=== PATIENT | male | born 1970 | race Caucasian/White ===

== ENCOUNTER 2024-05-21 06:13 | Day surgery (SDC) | payer BC, SELFPAY ==
[2024-05-21] VITALS (21 sets, daily range): BP systolic 90–130; BP diastolic 55–101; PULSE 94–104; RESP 14–18; TEMP 36.2–36.8; O2SAT 91–98; BMI 33.5
[2024-05-21] MEDS: SODIUM CHLORIDE 0.9 % (FLUSH) 10 ML SYRINGE IVF (07:00)
[2024-05-21] MEDS: LACTATED RINGERS 1000 ML 1,000 ML 100 ML IV (07:00)
[2024-05-21 07:18] LABS: PTH Intact* 87.3 pg/mL (14.2-75.2)
--- NOTE | 2024-05-21 07:36 | W.PM.H&PU ---
History & Physical Update History & Physical Update H&P Reviewed and patient assessed: No changes noted
--- NOTE | 2024-05-21 08:05 | W.ANESCHARGE ---
Anesthesia Charges Start Date/Time Anesthesia Start Date: 05/21/24 Anesthesia Start Time: 07:35 Stop Date/Time Anesthesia Stop Date: 05/21/24 Anesthesia Stop Time: 12:20
[2024-05-21] MEDS: BUPIVACAINE 0.25% 30 ML INJECTION (11:45)
[2024-05-21 11:53] LABS: PTH Intact* 16.1 pg/mL (14.2-75.2)
--- NOTE | 2024-05-21 12:20 | P.GSOP_ITS ---
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 Workup revealed hyperparathyroidism with likely localization imaging to a parathyroid adenoma on the right. Please see Dr. Ramon's preoperative discussion and decision making for further details. Procedure Description: I arrived to the OR with the patient intubated.? Care was taken to pad the patient's pressure points, tuck the arms and and extend his neck. The NIM subde rmal electrodes were placed in the appropriate location. The operative site was then prepped and draped in the usual sterile fashion.? A time-out was then performed. Doctor Ramon then created an incision 2 fingerbreadths above the sternal notch and took dissection down to the subcutaneous fat and through the platysma layer. I retracted the inferior and superior incision will she created sub platysmal flaps to the thyroid cartilage superiorly and sternal notch inferiorly. We then began our dissection on the right. I retracted the thyroid while Dr. Ramon divided wispy fibers between the strap muscles with cautery, exposing the thyroid. We began by mobilizing the inferior pole. Dr. Ramon dissected out the inferior pole vessels and doubly ligated them with clips and ties before dividing. Once the inferior pole was free, I mobilized this superior old medially exposing the posterior thyroid bed. There was fatty tissue noted at the inferior aspect of the thyroid. This did not appear entirely consistent with an adenoma, however it did appear consistent with parathyroid tissue. This was excised and sent for biopsy. Frozen section confirmed this to be a parathyroid gland (specimen A). We did eventually send additional tissue from area A presuming it to be possible adenoma, however this was reported on frozen section to be fat (specimen D). We continued our dissection superiorly. The posterior aspect of the thyroid was lobulated. There was a round nodule posteriorly with a fatty cap. This appeared approximately in the location of the parathyroid, however it was firm and red and appeared more consistent with thyroid tissue. A biopsy for frozen section of this was sent and came back as fatty/fibrotic tissue (specimen B). We continued to explore the area posterior to the thyroid and further mobilized the thyroid medially by dividing the attachments to the strap muscles more superiorly. Again, I provided medial retraction of the thyroid and exposure while Dr. Ramon divided these attachments. At this point the posterior aspect of the thyroid was completely exposed. The recurrent laryngeal nerve was noted in its usual location was confirmed with the NIM. Dr. Ramon carefully picked through the fatty tissue in the central compartment. I divided thin tissue with cautery. Small vessels were clipped. Additional samples of tissue were sent, including fatty tissue posterior to the thyroid more superiorly; both came back as fat without evidence of parathyroid. As we examined the area posterior to the thyroid, the firm nodule which was attached to the thyroid was obscuring our view. This was noted at the location of the medial thyroid vein and recurrent laryngeal nerve. Again it appeared firm and reddened and did not appear consistent with parathyroid, however this was excised. Its base was cauterized and again, appeared more consistent with thyroid tissue. This was sent for frozen section and was reported back as hypercellular parathyroid (specimen G). An additional rim of tissue was also excised by Dr. Ramon and sent to pathology. The base was clipped to ensure hemostasis. Interestingly, this additional tissue appeared to be thyroid on fr ozen section (specimen H). Two venous samples for PTH were then sent; the first, 15 minutes after the superior parathyroid was sent, and the 2nd 15 minutes after the additional tissue was sent. These both came back at a greater than 50% reduction in the preoperative level, confirming successful excision of the superior adenoma. At this point, the wound was examined for hemostasis which was excellent. Dr. Ramon then finished closure of the wound. Please see Dr. Ramon's note for details. Findings: Superior parathyroid adenoma. Inferior parathyroid gland biopsied/removed Anesthesia: GETA Surgeon: Madonna Ramon MD Co-Surgeon: Carly Rutledge MD Estimated blood loss (mL): 5 Specimen: Other Additional Specimen Information: A) possible inferior right parathyroid gland B) possible inferior right parathyroid gland C) possible right thyroid biopsy D) additional right inferior parathyroid tissue, adjacent to specimen a E) possible right superior parathyroid gland F) possible right thyroid biopsy G) right thyroid gland biopsy H) remnant right superior parathyroid gland Condition: stable Disposition: PACU
--- NOTE | 2024-05-21 12:25 | W.ANESCHARGE ---
Anesthesia Charges Start Date/Time Anesthesia Start Date: 05/21/24 Anesthesia Start Time: 07:35 Stop Date/Time Anesthesia Stop Date: 05/21/24 Anesthesia Stop Time: 12:20
[2024-05-21] MEDS: LACTATED RINGERS 500 ML 500 ML IV (12:27)
[2024-05-21] MEDS: PHENYLEPHRINE 100 MCG/ML SYRINGE IVP (12:52)
--- NOTE | 2024-05-21 14:03 | PM.GSPRC ---
Operative Note Date of procedure: 05/21/24 Pre-op diagnosis: Primary hyperparathyroidism Post-op diagnosis: Same, parathyroid adenoma Type of Procedure: 1. Right neck exploration 2. Inferior and superior parathyroidectomy Indications: Patient is a 54-year-old male who presented to clinic with elevated calcium, PTH and workup consistent with primary hyperparathyroidism. Localization studies were performed, as well as different treatment options. Please see consultation note for full discussion. Risks and benefits of proceeding with a neck exploration and parathyroidectomy were discussed at length the patient. Risks included, but were not limited to: Bleeding, infection, risk of damage to surrounding structures, in particular we discussed the risk of injury to nerves within the neck affecting his voice. Additionally we reviewed potential need for calcium postoperatively, recurrence and further operations. All questions and concerns were addressed with patient agreeing to proceed. Procedure Description: After discussing the risks and benefits of the procedure, the patient signed informed consent.? The operative site was marked and the patient was brought to the operating room and placed on the operating table in supine position.? Care was taken to pad the patient's pressure points.?? The patient was then intubated by anesthesia with a NiM ET tube. The NIM subdermal electrodes were placed in the appropriate location. The operative site was then prepped and draped in the usual sterile fashion.? A time-out was then performed. A transverse incision was made 2 fingerbreadths above the sternal notch and subcutaneous fat dissected with electrocautery through the platysma layer. A sub platysmal plane was then dissected with cautery inferior to the sternal notch and superior to the thyroid cartilage. The midline raphe of the strap muscles were identified and dissected with cautery. Dr. Rutledge then helped with retraction while I divided the fibers between the strap muscles and underlying thyroid tissue. This allowed for appropriate exposure and we began by mobilizing the inferior pole. I dissected out the inferior pole vessels and doubly ligated those with clips and ties before dividing. Once the inferior pole was completely freed we began to explore this portion of the neck for associated parathyroid tissue. Some fatty vascularized tissue was seen just inferior to the thyroid gland. This was sent to pathology as possible inferior right parathyroid gland. Pathology called back in did confirm the presence of a normal parathyroid gland. An additional area of fat was also sent for specimen, but came back as normal fibrous tissue. There was fatty tissue and a nodule adherent to the inferior aspect of the thyroid. This did appear to be contiguous with the thyroid gland and not an independent structure. However, due to the appearance of the mass a specimen was sent for biopsy. The initial specimen came back as fibrous tissue (specimen C). A larger piece of tissue was dissected free with electrocautery and sent for additional evaluation later in the case, which confirmed the presence of a parathyroid adenoma, but this was following the dissection described below (specimen G). We continued to evaluate posterior to the inferior thyroid lobe. The tracheoesophageal groove was identified and using the NIM stimulator the recurrent laryngeal nerve identified. Care was taken to keep the nerve outside of the operative field. I continued to dissect through the fatty tissue posterior to the thyroid gland, carefully dividing any thin tissue with cautery and clipping any small vessels identified. Additional samples of tissue were sent, confirming the presence of fatty tissue. Dissection was continued superiorly, with no additional nodules or lesions identified. During this portion of the procedure the nodule that had been biopsied previously (specimen C) was in our operative field obscuring our visualization, so a larger portion of tissue was transected with electrocautery and sent for evaluation. This lesion was noted to be at the location of the middle thyroid vein and adjacent to the recurrent laryngeal nerve. At this point the frozen section was reported back to be hypercellular parathyroid, so an additional rim of tissue was excised and sent to pathology. The base was clipped to ensure hemostasis. The additional tissue on further evaluation was consistent with the thyroid gland, confirming the suspicion for a densely adherent lesion on the thyroid tissue. Two venous sample PTH were then sent 15 minutes after the superior parathyroid was removed with evidence of a greater than 50% reduction in the preoperative level. This confirmed the successful identification and removal of a superior parathyroid adenoma. At this point in the case Dr. Rutledge scrubbed out and I proceeded to close. The wound was gently irrigated and hemostasis assured. Anesthesia did perform a Valsalva maneuver with again evidence of excellent hemostasis. The midline raphe was brought together loosely with interrupted 3-0 Vicryl. The platysma muscle was reapproximated with interrupted 3 0 Vicryl. Dermal stitches of 3-0 Vicryl and a running 4 O Monocryl subcuticular stitch were placed. Local anesthetic was applied. Sterile dressings were then applied. ? The patient was then woken and transported to the recovery area in stable condition. ? The patient tolerated the procedure well. Findings: Normal inferior parathyroid gland. Superior parathyroid adenoma. Anesthesia: GETA Surgeon: Madonna Ramon MD Estimated blood loss (mL): 5 Additional Specimen Information: A) possible inferior right parathyroid gland B) possible inferior right parathyroid gland C) possible right thyroid biopsy D) additional right inferior parathyroid tissue, adjacent to specimen a E) possible right superior parathyroid gland F) possible right thyroid biopsy G) right thyroid gland biopsy H) remnant right superior parathyroid gland Condition: stable Disposition: PACU
--- NOTE | 2024-05-21 14:48 | PC.NURSE ---
Post op arrival to the floor this afternoon, drowsy although VSS on RA. O2 % in the low 90's. The patient reported to be quite hot when he presented to the floor. Temp 97.5, cool washcloth given as well as an ice pack. No reports of pain. Dressing is CDI to medial neck. Bilateral SCDS on, sleeping in bed with at the bedside. Call light within reach. Michelle LOZANO BSN
[2024-05-21] MEDS: INSULIN ASPART 100 UNIT/ML SUBCUT ×2 (17:12→20:39)
[2024-05-21] MEDS: HYDROCODONE-ACETAMIN 5-325 MG 1 TAB PO ×2 (17:18→23:28)
--- NOTE | 2024-05-21 18:58 | PC.NURSE ---
Patient alert and orientedx4. Vitals remain stable.Denies any numbness and tingling. Reports that he is passing gas. Complained of pain once this shift which was managed with PRN norco( See MAR). Medication was effective at managing patient's pain. Patient able to ambulate to the bathroom with SBA. Dressing on surgical wound clean dry intact with no drainage. at bedside most of the shift.
[2024-05-22 03:00] VITALS: BP 119/76; PULSE 96; RESP 18; TEMP 36.5; O2SAT 97
[2024-05-22] MEDS: HYDROCODONE-ACETAMIN 5-325 MG 1 TAB PO ×2 (04:06→08:49)
--- NOTE | 2024-05-22 05:47 | PC.NURSE ---
End of shift report [id number]: Pleasant and cooperative with cares. Pain to neck well managed with current regimen. Dressing to right neck incision clean, dry and intact. Non pitting edema to surgical site. Patient tolerating ice pack to site. Denies any nausea or vomiting. Denies any difficultly swallowing or speaking Tolerating food and fluids well. Independent with ambulation.
[2024-05-22 07:00] VITALS: BP 143/104; PULSE 85; RESP 18; TEMP 36.8; O2SAT 97
[2024-05-22] MEDS: INSULIN ASPART 100 UNIT/ML SUBCUT (08:40)
--- NOTE | 2024-05-22 11:46 | PC.NURSE ---
Discharge-- Pleasant and cooperative, alert and oriented patient was discharged to home with ambulatory. VSS and pt is afebrile. SPO2 maintained >90% on RA. He denied nausea and ate a regular breakfast without difficulty. Blood sugar was 218 this morning and pt was given insulin per sliding scale. Incision along lower neck was SHERON and well approximated. Recovered with a Mepilex prior to discharge per patient request. LS CTA. Discharge education was provided including diagnosis info, symptoms to report, medications and follow up plan. All questions answered and SL was removed with tip intact.
--- NOTE | 2024-05-22 16:03 | PM.DS1 ---
DS: Providers Provider Date Seen: 05/22/24 Primary care physician: Sahra Alvarado MD Attending Physician on discharge: Madonna Ramon MD DS: Summary Hospital Course Hospital Course: Patient was admitted following a right neck exploration with inferior and superior parathyroidectomy. This was for a parathyroid adenoma. Intraoperatively he had normalization of his PTH. On postop day 1 his calcium was 9.0. Patient did report some soreness around his incision. He denies any hoarseness or change in his voice. He was able to tolerate food without difficulty. His pain is well controlled. Patient was successfully discharged to home. Will follow up in the clinic in 2 weeks. Time Spent with Patient Time attestation: Total time spent providing and/or coordinating discharge services: Exam Narrative: Exam Narrative: General: Alert and oriented, no acute distress HEENT: Incision clean/dry/intact, some mild swelling of the subcutaneous tissue, no underlying seroma or hematoma appreciated. Phonation and character of voice within normal limits Const: Vital Signs, click to edit/add: Vital Signs - 24 hr 05/21/24 17:00 05/21/24 18:00 05/21/24 23:00 Temperature 98.0 F Pulse Rate [Left P ulse Oximeter] 103 H 99 94 Respiratory Rate 16 Blood Pressure [Le ft Arm] 128/85 118/68 103/66 Pulse Oximetry 94 97 96 Oxygen Delivery Me thod Room Air Room Air Room Air 05/21/24 23:00 05/22/24 03:00 05/22/24 07:00 Temperature 97.7 F 98.2 F Pulse Rate [Left P ulse Oximeter] 96 85 Respiratory Rate 16 18 18 Blood Pressure [Le ft Arm] 119/76 143/104 H Pulse Oximetry 96 97 97 Oxygen Delivery Me thod Room Air Room Air Room Air 05/22/24 07:00 05/22/24 07:00 Temperature Pulse Rate [Left P ulse Oximeter] 85 Respiratory Rate 18 18 Blood Pressure [Le ft Arm] Pulse Oximetry 97 Oxygen Delivery Me thod Room Air DS: Data Data Completed and Pending Labs on day of discharge: Labs from last 24 hours 05/22/24 06:12 Calcium 9.0 Discharge Plan Discharge Disposition: Home w/ Parent or Adult Discharging Surgeon: Madonna Ramon Follow-Up Appointment: 2 week follow up, [facility] Prescriptions: New hydrocodone-acetaminophen 5-325 mg tablet 1 tab PO Q6H PRN (Reason: pain) Qty: 15 0RF senna 8.6 mg capsule 8.6 mg PO DAILY PRN (Reason: constipation) Qty: 90 0RF Continued Jardiance 25 mg tablet 25 mg PO DAILY ergocalciferol (vitamin D2) 1,250 mcg (50,000 unit) capsule 50,000 unit PO 2XW Rx Instructions: mon, thurs losartan [Cozaar] 100 mg tablet 100 mg PO DAILY multivitamin Tablet 1 tab PO DAILY rosuvastatin [Crestor] 10 mg tablet 10 mg PO HS sertraline [Zoloft] 50 mg tablet 75 mg PO DAILY Entyvio 300 mg recon soln 300 mg IV Q8W Rx Instructions: administer over 30 mins insulin glargine [Lantus Solostar U-100 Insulin] 100 unit/mL (3 mL) insulin pen 30 unit subcut HS glipizide 10 mg tablet extended release 24hr 10 mg PO DAILY Activity Level: No strenuous activity Activity Detail: Activity as tolerated. Avoid strenuous activity. No lifting greater than 20 lb for 2 weeks. Discharge Diet: Regular Patient Instructions: Hydrocodone/Acetaminophen (By mouth), Senna (By mouth), Parathyroidectomy (DC) Additional Instructions: You were prescribed a narcotic pain medication. In addition you may supplement with Tylenol and/or ibuprofen. Be sure to not exceed greater than 4 g of Tylenol in a 24 hour period. While on narcotic pain medicine please take stool softeners. A prescription of stool softeners has been sent to the pharmacy. Stop if having greater than 2 stools per day. You have an outer dressing, which can be removed tomorrow. Okay to shower. Do not soak in a bath or swim for 2 weeks. Follow-up with Dr. Ramon in 2-3 weeks. Please call if you are experiencing severe pain, nausea, vomiting, difficulty urinating, fever or not had a bowel movement in 4 days after surgery. Follow-up: Madonna Ramon MD [Staff Physician] - 06/05/24 10:15 am ([facility] for follow-up.) Sahra Alvarado MD [Primary Care Provider] - Discharge Orders: Discharge Order (Routine); Ordered 05/22/24 Ordered By: Madonna Ramon
== END 2024-05-22 09:15 | disposition home or self-care (01) ==
LOC: MEDSURG 08:09 → SS 13:33 → MEDSURG 13:34
PROVIDERS: PCP Family Medicine; Visit Provider Surgery
PROC: (CPT 60500; principal; 2024-05-21 07:30)
DX: D35.1 Benign neoplasm of parathyroid gland (principal); E21.0 Primary hyperparathyroidism; I10 Essential (primary) hypertension; Z68.32 Body mass index [BMI] 32.0-32.9, adult; D84.9 Immunodeficiency, unspecified; E11.65 Type 2 diabetes mellitus with hyperglycemia; Z79.84 Long term (current) use of oral hypoglycemic drugs; Z79.4 Long term (current) use of insulin
CPT/HCPCS: 60500; 00320; 36415; 76998; 82310; 82397; 82962; 83970; 88305; A9270; J0330; J0665; J1100; J1630; J1885; J2371; J2405; J2704; J3010; J3475; J3490; J7120